=== PATIENT | female | born 1930 | race Caucasian/White ===

== ENCOUNTER 2017-12-30 15:05 | Emergency (ER) | payer OTHER ==
[~2017-12-30] VITALS: Ht 152.4 cm; Wt 49.9 kg
[2017-12-30] MEDS ORDERED: ASPI81CH PO (15:45)
[2017-12-30] MEDS ORDERED: Propranolol HCl60 MG PO (15:45)
[2017-12-30] MEDS ORDERED: CENTRUM SILVER1 EAC3 PO (15:45)
[2017-12-30] MEDS ORDERED: CEPH500 PO (17:59)
== END 2017-12-30 19:25 | disposition home or self-care (01) ==
LOC: ER 15:05
DX: S81.812A Laceration without foreign body, left lower leg, initial encounter (principal); Z23 Encounter for immunization; I10 Essential (primary) hypertension; Z88.2 Allergy status to sulfonamides; Z79.899 Other long term (current) drug therapy; Z79.82 Long term (current) use of aspirin; W10.9XXA Fall (on) (from) unspecified stairs and steps, initial encounter; Y92.251 Museum as the place of occurrence of the external cause
CPT/HCPCS: 12035; 90471; 90714; 96374; 99283; J0690